=== PATIENT | male | born 1965 | race Caucasian/White ===

== ENCOUNTER 2019-02-18 20:34 | Emergency (ER) | payer MEDICAID ==
[~2019-02-18] VITALS: Ht 172.7 cm; Wt 94.8 kg
[2019-02-18 20:42] VITALS: Ht 172.7 cm; Wt 94.8 kg
[2019-02-18] MEDS ORDERED: FAMOTIDINE 20 MG TAB PO STA (22:22)
[2019-02-18] MEDS ORDERED: LIDOCAINE/MYLANTA 40 ML BTL PO STA (22:22)
--- NOTE | 2019-02-18 23:08 | ERD ---
ER Documentation Chief Complaint Chief Complaint lower R AP radiating to lower R back X 45 days HPI This is a 54-year-old male who presents with right lower inguinal pain for the last 2 days, but has been on and off for the last 45 days. He states that pain is worse with movement, also with cough. He has not had any GI surgeries, there are no alleviating factors. He has not had a fever, symptoms are intermittent. ROS All systems reviewed and are negative except as per history of present illness. Medications Home Meds Active Scripts Hydrocodone/Acetaminophen ([place] 5-325 Tablet) 1 Each Tablet, 1 TAB PO Q6H PRN for PAIN, #7 TAB Prov:EVELYN CARBAJAL MD 02/18/19 Allergies Allergies: Coded Allergies: No Known Allergy (Unverified , 02/18/19) PMhx/Soc Medical and Surgical Hx: pt denies Medical Hx, pt denies Surgical Hx History of Surgery: No Anesthesia Reaction: No Hx Neurological Disorder: No Hx Respiratory Disorders: No Hx Cardiac Disorders: No Hx Psychiatric Problems: No Hx Alcohol Use: Yes (OCASSIONALLY) Hx Substance Use: No Hx Tobacco Use: No Smoking Status: Former smoker Physical Exam Vitals Vital Signs Date Temp Pulse Resp B/P (MAP) Pulse Ox O2 O2 Flow FiO2 Time Delivery Rate 02/18/19 97.9 77 14 156/110 97 Room Air 21:15 (125) 02/18/19 98.7 86 18 156/111 98 20:42 (126) Physical Exam Const: No acute distress Head: Atraumatic Eyes: Normal Conjunctiva ENT: Normal External Ears, Nose and Mouth. Neck: Full range of motion. No meningismus. Resp: Clear to auscultation bilaterally Cardio: Regular rate and rhythm, no murmurs Abd: Soft, non tender, non distended. There is a right inguinal hernia, that is soft and easily reducible, there is no McBurney's point tenderness, there is no rebound or guarding, normal bowel sounds Skin: No petechiae or rashes Back: No midline or flank tenderness Ext: No cyanosis, or edema Neur: Awake and alert Psych: Normal Mood and Affect Result Diagram: 02/18/19211802/18/192118 Results 24 hrs Laboratory Tests Test 02/18/19 21:19 White Blood Count 7.3 10^3/ul Red Blood Count 5.29 10^6/ul Hemoglobin 15.4 g/dl Hematocrit 45.4 % Mean Corpuscular Volume 85.8 fl Mean Corpuscular Hemoglobin 29.1 pg Mean Corpuscular Hemoglobin Concent 33.9 g/dl Red Cell Distribution Width 12.5 % Platelet Count 256 10^3/UL Mean Platelet Volume 9.9 fl Immature Granulocytes % 0.400 % Neutrophils % 57.9 % Lymphocytes % 26.8 % Monocytes % 7.5 % Eosinophils % 6.3 % Basophils % 1.1 % Nucleated Red Blood Cells % 0.0 /100WBC Immature Granulocytes # 0.030 10^3/ul Neutrophils # 4.2 10^3/ul Lymphocytes # 2.0 10^3/ul Monocytes # 0.6 10^3/ul Eosinophils # 0.5 10^3/ul Basophils # 0.1 10^3/ul Nucleated Red Blood Cells # 0.0 10^3/ul Prothrombin Time 12.5 Sec Prothrombin Time Ratio 1.0 INR International Normalized Ratio 0.92 Urine Color YELLOW Urine Clarity CLEAR Urine pH 7.0 Urine Specific [place] 1.011 Urine Ketones NEGATIVE mg/dL Urine Nitrite NEGATIVE mg/dL Urine Bilirubin NEGATIVE mg/dL Urine Urobilinogen NEGATIVE mg/dL Urine Leukocyte Esterase NEGATIVE Rebeka/ul Urine Hemoglobin NEGATIVE mg/dL Urine Glucose NEGATIVE mg/dL Urine Total Protein NEGATIVE mg/dl Sodium Level 139 mmol/L Potassium Level 4.2 mmol/L Chloride Level 102 mmol/L Carbon Dioxide Level 26 mmol/L Anion Gap 11 Blood Urea Nitrogen 12 mg/dl Creatinine 0.87 mg/dl Est Glomerular Filtrat Rate mL/min > 60 mL/min Glucose Level 121 mg/dl Calcium Level 9.3 mg/dl Total Bilirubin 0.3 mg/dl Direct Bilirubin 0.00 mg/dl Indirect Bilirubin 0.3 mg/dl Aspartate Amino Transf (AST/SGOT) 24 IU/L Alanine Aminotransferase (ALT/SGPT) 12 IU/L Alkaline Phosphatase 85 IU/L Total Protein 7.7 g/dl Albumin 4.2 g/dl Globulin 3.50 g/dl Albumin/Globulin Ratio 1.20 Lipase 88 U/L Current Medications Medications Dose Sig/Minor Start Time Status Last (Trade) Ordered Route PRN Stop Time Admin Dose Reason Admin Famotidine 20 mg ONCE STAT 02/18/19 DC 02/18/19 (Pepcid) PO 22:22 22:33 02/18/19 22:23 40 ml ONCE STAT 02/18/19 DC 02/18/19 Miscellaneous PO 22:22 22:33 Medication 02/18/19 22:23 (Gi Cocktail (2)) Procedures/MDM This is a 53-year-old male presents for evaluation of right lower abdominal p ain, exam revealed a well-appearing nontoxic male in no acute distress. He had no peritoneal signs on abdominal exam, his CT scan confirmed right inguinal hernia, as well as left inguinal hernia as well. He had no evidence of obstruction or angulation, I discussed findings with patient, and recommend follow-up, for outpatient surgery referral, the patient felt comfortable with this, labs were otherwise unremarkable with no leukocytosis, no evidence of anion gap acidosis, at discharge the patient with no acute distress. EKG: Rate/Rhythm: Normal Sinus Rhythm QRS, ST, T-waves: No changes consistent w/ acute ischemia Impression: No evidence of ischemia or arrhythmia Departure Diagnosis: Primary Impression: Abdominal pain Abdominal location: unspecified location Qualified Codes: R10.9 - Unspecified abdominal pain Additional Impression: Inguinal hernia Obstruction and gangrene presence: without obstruction or gangrene Laterality: unspecified laterality Recurrence: not specified as recurrent Qualified Codes: K40.90 - Unilateral inguinal hernia, without obstruction or gangrene, not specified as recurrent Condition: EVELYN Bowens MD Feb 18, 2019 23:08
[2019-02-18] MEDS ORDERED: HYDR-4011 PO (23:09)
[2019-02-18 23:40] VITALS: BP 132/86; PULSE 73; RESP 14
== END 2019-02-18 23:45 | disposition home or self-care (01) ==
LOC: E/R 20:34
DX: K40.90 Unilateral inguinal hernia, without obstruction or gangrene, not specified as recurrent (principal)
CPT/HCPCS: 74176; 80053; 81003; 83690; 85025; 85610; 93005; Z7610; 36415